=== PATIENT | male | born 1975 | race Caucasian/White ===

== ENCOUNTER → 2016-08-26 | Day surgery (SDC) | payer OTHER ==
[~2016-08-26] MED LIST: LORTAB 10-3251 EACH PO; NORCO 5/325 TAB1 TAB PO; PRILOSEC40 MG PO
--- NOTE | ~2016-08-26 | OR ---
Unit #: [id number] #: [id number] Patient: TONIA MITCHELL [id number] [address] [address] [id number] MR#: [id number] NAME: TONIA MITCHELL. ROOM: Date of Procedure: 08/26/2016 Admission Date: 08/26/2016 Surgeon: Fabian Camacho M.D. : 1975 Attending Physician: Fabian Camacho M.D. OPERATIVE REPORT PREOPERATIVE DIAGNOSIS Genital condyloma. POSTOPERATIVE DIAGNOSIS Genital condyloma. PROCEDURE PERFORMED CO2 laser ablation. ANESTHESIA General. DESCRIPTION OF PROCEDURE After informed consent, he was taken to the operating room, placed supine on the table. Penis, perineum, and lower abdomen were prepped and draped in usual sterile fashion. Using a CO2 laser on a setting of 5, he had multiple relatively small condyloma in the genital area more so suprapubic and at the base of the penis. These were destroyed using the CO2 laser. We had a smoke evacuator actively entire time of the case. Wet towels were placed around the immediate surgical area as well. He had 1 larger condyloma on the pelvic abdominal wall. This was also destroyed with the laser. There was no active bleeding at the end of the procedure. There was no other visible condyloma cause. Multiple inspections of the entire treated and untreated area shows no other lesions. Antibiotic ointment was placed on the treated area. The patient was taken to recovery and will be discharged home and follow up as an outpatient. All counts were correct at the end of the procedure. Dictated by... Nikita Abebe/nelyl TD: 08/27/2016 02:29 JOB #: [id number] Unit #: [id number] #: [id number] Patient: TONIA MITCHELL OPERATIVE REPORT X Fabian Camacho MD PROCEDURE OPERATIVE NOTE
== END | disposition home or self-care (01) ==
LOC: CSUR 08:32
DX: A63.0 Anogenital (venereal) warts (principal); K21.9 Gastro-esophageal reflux disease without esophagitis; F17.210 Nicotine dependence, cigarettes, uncomplicated; Z79.52 Long term (current) use of systemic steroids; Z90.89 Acquired absence of other organs; Z98.890 Other specified postprocedural states
CPT/HCPCS: J0690; J2405; J3010